=== PATIENT | male | born 1935 | race Caucasian/White ===

== ENCOUNTER 2018-12-30 10:10 | Emergency (ER) | payer OTHER ==
[~2018-12-30] VITALS: Ht 167.6 cm; Wt 95.3 kg
[~2018-12-30 10:10] MED LIST: ALDACTONE25 MG PO; AMARYL2 M1 PO; ASPIR 8181 MG PO; ATORVASTATIN CA40 MG PO; AUGMENTIN 875875 MG PO; CITRUCEL CAPLET1 TAB PO; COLACE100 MG PO; COREG25 MG PO; COREG3.125 MG PO; COZAAR 25 MG TA25 M1 PO; DEMADEX20 MG PO; ENOXAPARIN40 MG/0.1 SQ; IMDUR 30 MG TAB30 M1 PO; LASIX 20 MG TAB20 MG PO; LASIX 40 MG TAB40 M2 PO; LEVOTHYROXIN0.088 MG PO; NOVOLIN R100 UNIT/1; PLAVIX 75 MG TA75 M1 PO; PREDNISONE 20 M20 MG PO; TYLENOL325 MG PO; VOLTAREN GEL 1100 G2 TOP
[2018-12-30 10:11] VITALS: BP 123/65
[2018-12-30 10:33] LABS: ABSOLUTE NEUTROPHILS 15.1 thou/uL (1.4-8.2); BASOPHILS 0.3 % (0.0-2.0); HEMATOCRIT 43.5 % (42.0-52.0); HEMOGLOBIN 14.4 gm/dL (14.0-18.0); LYMPHOCYTES 4.4 % (24.0-44.0); MCH 30.3 pg (26.0-34.0); MCHC 33.2 g/dL (28.0-37.0); MCV 91.2 fL (80.0-100.0); MONOCYTES 6.3 % (1.0-8.0); PLATELET COUNT 254 thou/uL (150-400); RBC 4.77 mil/uL (4.50-6.00); RDW 13.9 % (10.5-14.5)
[2018-12-30 10:41] LABS: ANION GAP 18 mmol/L (7-16); BUN 40 mg/dL (7-18); CALCIUM 9.4 mg/dL (8.5-10.1); CHLORIDE 98 mmol/L (98-107); CO2 23 mmol/L (21-32); CREATININE 1.5 mg/dL (0.7-1.3); GLUCOSE 341 mg/dL (74-106); SODIUM 139 mmol/L (136-145)
[2018-12-30 10:42] LABS: POTASSIUM 4.2 mmol/L (3.5-5.1)
[2018-12-30 10:43] LABS: APTT 24.5 Seconds (24.5-32.8); PROTIME 10.8 Seconds (9.3-11.4)
[2018-12-30 10:49] LABS: TROPONIN-I <0.06 ng/mL (<0.06)
[2018-12-30 12:09] LABS: URINE BILIRUBIN NEGATIVE (Negative); URINE BLOOD NEGATIVE (Negative); URINE CLARITY CLEAR; URINE COLOR YELLOW; URINE GLUCOSE-RANDOM* 2+ (Negative); URINE KETONES 1+ (Negative); URINE LEUKOCYTES-REFLEX NEGATIVE (Negative); URINE NITRITE-REFLEX NEGATIVE (Negative); URINE PROTEIN (DIPSTICK) NEGATIVE (Negative); URINE UROBILINOGEN 0.2 E.U./dl (0.2-1.0)
[2018-12-30 12:24] VITALS: BP 108/63
[2018-12-30] MEDS ORDERED: LISINOPRIL5 MG PO (13:04)
[2018-12-30] MEDS ORDERED: ZAROXOLYN 5MG TA5 MG PO (13:05)
[2018-12-30] MEDS ORDERED: ELIQUIS5 MG PO (13:05)
[2018-12-30] MEDS ORDERED: POTASSIUM20 PO ×3 (13:07→13:14)
--- NOTE | 2018-12-30 13:23 | NUR ---
TECH TAKES PT TO THE FLOOR, ERP ALERTS THIS FRONT COUNTER ATTENDANT THAT PT WILL NEED TO COME BACK TO ER AND WILL LIKELY NEED TRANSFERED R/T CT RESULTS
[2018-12-30 13:54] LABS: FOLIC ACID 13.7 ng/mL (8.6-58.9)
[2018-12-30 15:30] VITALS: BP 120/60
--- NOTE | 2018-12-30 15:30 | NUR ---
KEL STARTED, EMS UPDATED ON MEDICATION. PT LEAVES ER AT THIS TIME
--- NOTE | 2018-12-30 15:53 | EKG ---
[place] [address] [facility] [place] [address] ELECTROCARDIOGRAM REPORT Name: VENU JAY Room #: 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
== END 2018-12-30 15:26 ==
LOC: ER 10:10 → EROBS 12:07 → 3W 13:14 → ER 15:26
PROVIDERS: Emergency Medicine; Internal Medicine
DX: R55 Syncope and collapse (principal); N17.9 Acute kidney failure, unspecified; K92.0 Hematemesis; I50.9 Heart failure, unspecified; R74.0 Nonspecific elevation of levels of transaminase and lactic acid dehydrogenase [LDH]; M25.552 Pain in left hip; M19.90 Unspecified osteoarthritis, unspecified site; Z96.643 Presence of artificial hip joint, bilateral; I25.2 Old myocardial infarction; Z95.5 Presence of coronary angioplasty implant and graft; Z90.49 Acquired absence of other specified parts of digestive tract

== ENCOUNTER 2021-04-21 10:22 | Inpatient (IN) | payer OTHER ==
[~2021-04-21] VITALS: Ht 167.6 cm; Wt 93.1 kg
[2021-04-21 10:22] VITALS: BP 144/72
[~2021-04-21 10:22] MED LIST changes: +ELIQUIS5 MG PO; +LISINOPRIL5 MG PO; +POTASSIUM20 PO; +ZAROXOLYN 5MG TA5 MG PO
[2021-04-21 12:09] LABS: ABSOLUTE NEUTROPHILS 4.9 thou/uL (1.4-8.2); BASOPHILS 1.3 % (0.0-2.0); EOSINOPHILS 3.4 % (0.0-3.0); HEMATOCRIT 42.6 % (42.0-52.0); HEMOGLOBIN 14.3 gm/dL (14.0-18.0); LYMPHOCYTES 17.7 % (24.0-44.0); MCHC 33.5 g/dL (28.0-37.0); MCV 92.4 fL (80.0-100.0); MONOCYTES 13.1 % (1.0-8.0); PLATELET COUNT 188 thou/uL (150-400); POLYS 64.5 % (36.0-66.0); RBC 4.61 mil/uL (4.50-6.00); RDW 13.9 % (10.5-14.5); WBC 7.6 thou/uL (4.0-11.0)
[2021-04-21 12:22] LABS: ANION GAP 11 mmol/L (7-16); BUN 12 mg/dL (7-18); CALCIUM 9.3 mg/dL (8.5-10.1); CHLORIDE 106 mmol/L (98-107); CO2 23 mmol/L (21-32); GLUCOSE 149 mg/dL (74-106); POTASSIUM 4.3 mmol/L (3.5-5.1); SODIUM 140 mmol/L (136-145)
[2021-04-21 12:31] LABS: ALBUMIN 3.2 g/dL (3.4-5.0); MAGNESIUM 1.9 mg/dL (1.8-2.4); SGOT 27 U/L (15-37); SGPT 39 U/L (16-63); TOTAL PROTEIN 6.8 g/dL (6.4-8.2); TROPONIN-I <0.06 ng/mL (<0.06)
--- NOTE | 2021-04-21 14:47 | NUR ---
UPDATE GIVEN TO MONSTER FROM [facility] AT THIS TIME. ENCOURAGED TO CALL WITH ANY QUESTIONS OR CONCERNS
--- NOTE | 2021-04-21 16:20 | NUR ---
PT AMBULATED ROUGHLY 50FT WITH ROTO MIXER OPERATOR. PT 02 STATED TO HAVE DROPPED TO 86% ON RA. ED PROVIDER NOTIFIED
[2021-04-21 17:26] VITALS: BP 144/68
[2021-04-21 17:48] VITALS: BP 122/69
[2021-04-21 18:20] VITALS: BP 130/63
[2021-04-21 23:52] VITALS: BP 123/61
[2021-04-22 04:10] VITALS: BP 119/61
[2021-04-22 05:21] LABS: ABSOLUTE NEUTROPHILS 4.2 thou/uL (1.4-8.2); EOSINOPHILS 4.2 % (0.0-3.0); HEMATOCRIT 44.6 % (42.0-52.0); HEMOGLOBIN 14.7 gm/dL (14.0-18.0); MCH 30.7 pg (26.0-34.0); MCV 92.9 fL (80.0-100.0); MONOCYTES 14.8 % (1.0-8.0); PLATELET COUNT 192 thou/uL (150-400); RDW 14.1 % (10.5-14.5); WBC 7.6 thou/uL (4.0-11.0)
--- NOTE | 2021-04-22 05:49 | NUR ---
PATIENTS CARES WERE ASSUMED AT SHIFT CHANGE. PATIENT WAS ASSESSED AND MEDS WERE PASSED. A RISER WAS PLACE OVER THE TOILET, IT WORKES HOWEVER THE TOILET LEEKS AT THE BASE. ROUNDS WERE DONE, THE BED IS IN A DREW AND
[2021-04-22 06:07] LABS: ANION GAP 16 mmol/L (7-16); BUN 14 mg/dL (7-18); CALCIUM 8.9 mg/dL (8.5-10.1); CHLORIDE 103 mmol/L (98-107); CO2 23 mmol/L (21-32); GLUCOSE 112 mg/dL (74-106); POTASSIUM 4.1 mmol/L (3.5-5.1); SODIUM 142 mmol/L (136-145); TROPONIN-I <0.06 ng/mL (<0.06)
[2021-04-22 06:14] LABS: CHOLESTEROL 130 mg/dL (<200); HDL CHOLESTEROL 44 mg/dL (>40); LDL CHOLESTEROL 58 mg/dL (<100); TRIGLYCERIDE 144 mg/dL (<150); VLDL 29 mg/dL (<40)
[2021-04-22 06:15] LABS: SERUM ASSESSMENT Clear
--- NOTE | 2021-04-22 06:59 | EKG ---
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 : 1935 Requested By: Bobbi Oliver Order Number: [id number] MD: Stu Mack Measurements Intervals [place] Rate: 63 P: 13 TN: 122 QRS: 259 QRSD: 143 T: 79 QT: 471 QTc: 483 Interpretive Statements A-V dual-paced complexes w/ some inhibition No further analysis attempted due to paced rhythm Compared to ECG 12/30/2018 11:15:13 Atrial fibrillation no longer present Electronically Signed On 04-22-2021 6:59:31 CDT by Stu Mack [email or web address] <ELECTRONICALLY SIGNED> By: Stu Mack MD, [facility] 04/22/21 0659 45 45 Stu Mack MD, [facility] /EPI
[2021-04-22 07:12] VITALS: BP 121/76
[2021-04-22 11:05] VITALS: BP 112/51
--- NOTE | 2021-04-22 14:24 | NUR ---
Pt is A&Ox4 Pt currently lives in [place] at [facility] [phone] Pt is independent w/ ADL's however, requires minimum assistance from facility staff. Pt states that there is an elevator that he can use PCP: Sumit Duff MD DPOA: Not completed. SW encouraged and pt declined at this time. DME: Cane, R/W, W/C HH/SNF/REHAB/DIALYSIS HX: SNF AT [facility] APPROXIAMTELY 3-4 TIMES IN THE LAST 5 YEARS PRIOR TO TRANSITIONING TO [place] COVID VACCINE RECEIVED NOVEMBER 2020 MODERNA 2/2 AT [place] FACILITY SW SPOKE W/ [facility] AT [facility] WHO STATED THAT PT CAN RETURN OVER WEEKEND, HOWEVER THEY DO HAVE LIMITED STAFFING OVER THE WEEKEND AND THE HOSPITAL MAY HAVE TO PROVIDE TRNASPORT. [facility] AT [facility] ENCOURAGES A CALL TO ADMISSIONS/NURSING PRIOR TO PT RETURNING AT SAID NUMBER ABOVE. D/C PLAN: RETURN TO [facility]
--- NOTE | 2021-04-22 15:04 | 2DMMODE ---
[address] [address] 2 D/M-MODE ECHOCARDIOGRAM Name: VENU JAY Room #: 219-P ADM IN M.R.#: [id number] Admission: 04/21/21 Attend Phys: Sumit Lewis MD Discharge: Date of : 35 Report #: [id number] THIS REPORT FOR: cc: Sumit Duff MD, Kirk D. MD Lundgren, Craig H. MD [facility] ~ APPROVED REPORT Study performed: 04/22/2021 13:21:41 EXAM: Comprehensive 2D, Doppler, and color-flow Echocardiogram Patient Location: Bedside Room #: 219 Status: routine BSA: 2.10 HR: 71 bpm BP: 121/76 mmHg Rhythm: Pacemaker Other Information Study Quality: Technically Difficult Technically limited study due to inability to position patient. Indications ICD: Diabetes Atrial Fibrillation Dyspnea CAD Cardiomyopathy Hypertension/HDD Medtronic ICD Aortic Valve AoV Peak Owen.: 1.38 m/s AO Peak Gr.: 7.57 mmHg LVOT Max P.62 mmHg LVOT Max V: 0.95 m/s Mitral Valve E/A Ratio: 0.6 MV Decel. Time: 249.47 ms MV E Max Owen.: 0.62 m/s MV A Owen.: 0.99 m/s [address] [address] 2 D/M-MODE ECHOCARDIOGRAM Name: VENU JAY Room #: 219-P ADM IN M.R.#: [id number] Admission: 04/21/21 Attend Phys: Sumit Lewis MD Discharge: Date of : 35 Report #: [id number] MV PHT: 72.35 ms IVRT: 124.57 ms Pulmonary Vein P Vein S: 0.40 m/s P Vein A: 0.29 m/s P Vein D: 0.26 m/s P Vein A Dur.: 143.0 msec P Vein S/D Ratio: 1.54 Left Ventricle The left ventricle is normal size. There is severe global hypokinesis of the left ventricle. There is normal left ventricular wall thickness. Left ventricular ejection fraction is severely decreased. LVEF is 20%. Mild diastolic dysfunction Right Ventricle The right ventricle is normal size. The right ventricular systolic function is normal. Device lead is present in the right ventricle. Atria Left atrium is at the upper limits of normal. Right atrium is at the upper limits of normal. Device lead is present in the right atrium. Aortic Valve The aortic valve is sclerotic. No aortic regurgitation is present. There is no aortic valvular stenosis. Mitral Valve Mild mitral leaflet sclerosis. Mild mitral regurgitation. No evidence of mitral valve stenosis. Tricuspid Valve The tricuspid valve is normal in structure. There is no tricuspid valve regurgitation noted. Pulmonic Valve The pulmonary valve is normal in structure. There is no pulmonic valvular regurgitation. Great Vessels The aortic root is normal in size. The inferior vena cava is not well visualized. Pericardium There is no pericardial effusion. [facility] [address] [place] [address] 2 D/M-MODE ECHOCARDIOGRAM Name: VENU JAY Room #: 219-P ADM IN ..#: [id number] Admission: 04/21/21 Attend Phys: Sumit Lewis MD Discharge: Date of : 35 Report #: [id number] <Conclusion> Left ventricular ejection fraction is severely decreased. There is severe global hypokinesis of the left ventricle. LVEF is 20%. Mild diastolic dysfunction The aortic valve is sclerotic. No aortic regurgitation is present. Mild mitral leaflet sclerosis. Mild mitral regurgitation. Pulmonary artery pressure could not be reliably ascertained There is no pericardial effusion. <ELECTRONICALLY SIGNED> By: Darian Alvarez MD, FACC 04/22/21 1504 1504 1504 Darian Alvarez MD, FACC /INF
[2021-04-22 15:39] VITALS: BP 109/58
--- NOTE | 2021-04-22 18:49 | NUR ---
PATIENT CONTINUES TO HAVE DYSPNEA WITH MOVING IN BED, WALKING OR REPOSITIONING SELF. PATIENT'S VSS DURING AMBULATION AND TRANSFERRING. PT WALKED WITH PATIENT IN HALLWAY WITH C/O DYSPNEA BUT NO VS CHANGES. PATIENT SON, CRISTOBAL, UPDATED AT BEDSIDE. PATIENT CAN BE IMPULSIVE AND NOT USE THE CALL LIGHT. PATIENT STATES THIS IS BECAUSE "AT THE FACILITY, I'M NOT USED TO USING A CALL LIGHT. I DO A LOT OF THIS MYSELF." ENCOURAGED TO USE CALL LIGHT DUE TO BEING A FALL RISK AND DYSPNEA.
[2021-04-22 19:39] VITALS: BP 128/60
[2021-04-23 00:06] LABS: GLYCOHEMOGLOBIN (HGB A1C) 7.6 % (4.8-5.6)
[2021-04-23 04:40] VITALS: BP 127/71
[2021-04-23 05:22] LABS: HEMATOCRIT 42.8 % (42.0-52.0); HEMOGLOBIN 14.6 gm/dL (14.0-18.0); MCH 31.2 pg (26.0-34.0); MCHC 34.2 g/dL (28.0-37.0); MCV 91.4 fL (80.0-100.0); RBC 4.68 mil/uL (4.50-6.00); RDW 14.2 % (10.5-14.5); WBC 6.9 thou/uL (4.0-11.0)
[2021-04-23 05:32] LABS: CALCIUM 8.9 mg/dL (8.5-10.1); CREATININE 1.2 mg/dL (0.7-1.3); POTASSIUM 3.7 mmol/L (3.5-5.1)
[2021-04-23 08:33] LABS: ALBUMIN 3.3 g/dL (3.4-5.0); DIRECT BILIRUBIN 0.2 mg/dL (<0.1-0.2); TOTAL BILIRUBIN 2.1 mg/dL (0.2-1.0); TOTAL PROTEIN 7.1 g/dL (6.4-8.2)
[2021-04-23 08:40] VITALS: BP 109/57
[2021-04-23 11:19] VITALS: BP 140/69
[2021-04-23 16:00] VITALS: BP 100/38
[2021-04-23 18:41] VITALS: BP 90/58
[2021-04-23 19:21] VITALS: BP 96/46
--- NOTE | 2021-04-23 19:53 | NUR ---
RN ASSUMED PT'S CARE AT 0700-19OOPM, PT IS A&OX4, PT IS OFF O2 AT MOST OF TIME AT DAY SHIFT, PT STARTS O2 2L/MIN/NC AT 1800PM DUE TO sob with activities, PT'S VS ARE STABLE, PT DENIES PAIN AT DAY SHIFT.
[2021-04-24 04:40] VITALS: BP 96/76
[2021-04-24 08:00] VITALS: BP 118/48
[2021-04-24 10:32] LABS: ABSOLUTE NEUTROPHILS 4.9 thou/uL (1.4-8.2); BASOPHILS 0.8 % (0.0-2.0); EOSINOPHILS 2.7 % (0.0-3.0); HEMATOCRIT 43.8 % (42.0-52.0); HEMOGLOBIN 14.5 gm/dL (14.0-18.0); MCH 30.9 pg (26.0-34.0); MCHC 33.1 g/dL (28.0-37.0); MCV 93.3 fL (80.0-100.0); MONOCYTES 13.7 % (1.0-8.0); PLATELET COUNT 198 thou/uL (150-400); POLYS 64.8 % (36.0-66.0); RBC 4.69 mil/uL (4.50-6.00); RDW 14.5 % (10.5-14.5); WBC 7.6 thou/uL (4.0-11.0)
[2021-04-24 10:35] LABS: CALCIUM 8.6 mg/dL (8.5-10.1); POTASSIUM 4.4 mmol/L (3.5-5.1)
[2021-04-24 10:37] LABS: CREATININE 2.3 mg/dL (0.7-1.3)
[2021-04-24 12:29] VITALS: BP 92/55
[2021-04-24 16:00] VITALS: BP 91/47
[2021-04-24 20:30] VITALS: BP 95/50
[2021-04-25 04:45] VITALS: BP 128/67
[2021-04-25 04:54] LABS: HEMATOCRIT 42.7 % (42.0-52.0); HEMOGLOBIN 14.5 gm/dL (14.0-18.0); MCH 31.5 pg (26.0-34.0); MCHC 33.9 g/dL (28.0-37.0); MCV 92.9 fL (80.0-100.0); RBC 4.6 mil/uL (4.50-6.00); RDW 14.6 % (10.5-14.5); WBC 8.4 thou/uL (4.0-11.0)
[2021-04-25 05:05] LABS: CALCIUM 8.5 mg/dL (8.5-10.1); POTASSIUM 3.9 mmol/L (3.5-5.1)
[2021-04-25 07:56] VITALS: BP 117/47
[2021-04-25 11:48] VITALS: BP 94/52
[2021-04-25 15:47] VITALS: BP 78/32
[2021-04-25 20:15] VITALS: BP 106/41
[2021-04-26 04:45] VITALS: BP 104/53
[2021-04-26 05:00] LABS: HEMATOCRIT 42.9 % (42.0-52.0); HEMOGLOBIN 14.3 gm/dL (14.0-18.0); MCHC 33.3 g/dL (28.0-37.0); MCV 93.2 fL (80.0-100.0); RBC 4.6 mil/uL (4.50-6.00); RDW 14.2 % (10.5-14.5); WBC 7.6 thou/uL (4.0-11.0)
[2021-04-26 05:20] LABS: CALCIUM 8.1 mg/dL (8.5-10.1); CREATININE 2.3 mg/dL (0.7-1.3); POTASSIUM 4.5 mmol/L (3.5-5.1)
[2021-04-26 08:15] VITALS: BP 106/52
[2021-04-26 12:00] VITALS: BP 103/50
[2021-04-26 16:15] VITALS: BP 109/62
[2021-04-26 20:26] VITALS: BP 111/53
[2021-04-27 04:56] VITALS: BP 127/73
[2021-04-27 06:02] LABS: CALCIUM 8.5 mg/dL (8.5-10.1); CREATININE 1.6 mg/dL (0.7-1.3); POTASSIUM 4.3 mmol/L (3.5-5.1)
[2021-04-27 07:10] VITALS: BP 122/63
--- NOTE | 2021-04-27 09:14 | NUR ---
CARE TEAM HAD INDICATED THAT PT WASN'T MEDICALLY STABLE FOR DC HOME YESTERDAY HIS CREATININE BUMPED UP. CM MET WITH PT AT BEDSIDE. PT NEEDS O2 FOR HOME USE 2L WITH ACTIVITY PT INDICATED NO PREFERENCE FOR PROVIDER. CM SENT REFERRAL AND ORDER TO [facility] FOR HOME 02 UPON DC. PORTABLE TANK DELIVERED TO PT'S ROOM THIS DAY. CM FAXED CLINICAL UPDATE TO [facility] YESTERDAY. PT HAD BEEN ACCEPTED FOR PT, OT, AND NURSING THROUGH [facility]. LIAISON MET WITH PT YESTERDAY. PT IS AWARE AND AGREEABLE WITH ANTICPATED DC BACK TO [facility] WITH [facility] O2 AND [facility] TODAY.
[2021-04-27 11:05] VITALS: BP 119/61
[2021-04-27 16:15] VITALS: BP 123/56
--- NOTE | 2021-04-27 16:40 | NUR ---
NO ACUTE CHANGES THIS SHIFT. PATIENT HAD TWO MEDIUM-LARGE SOFT BM THIS SHIFT. REPORTED THIS TO GI ROTARY SOIL STABILIZER OPERATOR. PATIENT AMBULATED WITH WALKER AND CONTINUES TO HAS SHORTNESS OF BREATH WITH ACTIVITY.
[2021-04-27 20:12] VITALS: BP 135/62
[2021-04-28 04:35] VITALS: BP 145/63
[2021-04-28 04:39] LABS: HEMATOCRIT 42.9 % (42.0-52.0); HEMOGLOBIN 14.4 gm/dL (14.0-18.0); MCH 31.1 pg (26.0-34.0); MCHC 33.6 g/dL (28.0-37.0); MCV 92.5 fL (80.0-100.0); RBC 4.64 mil/uL (4.50-6.00); WBC 6.6 thou/uL (4.0-11.0)
[2021-04-28 08:29] VITALS: BP 98/65
--- NOTE | 2021-04-28 09:53 | NUR ---
Nutrition: pt admitted with dyspnea and seen for LOS. PMH: CAD, CHF, HTN, DM, ICM. PO intake is good, observed 100% breakfast. Stable weights reported. BM 04/26, constipation per CT, on miralax. BG 133-272, will add carb controlled to diet order. RD addressed education needs with pt and importance of Na+ restriction/DM diet. Pt was not interested in discussing diet/suspected noncompliance. Low nutrition risk at this time.
[2021-04-28 11:36] VITALS: BP 99/62
[2021-04-28 15:07] VITALS: BP 99/62
--- NOTE | 2021-04-28 15:31 | NUR ---
Possible dc back to [facility] tomorrow after his colonoscopy. BS updated. Pt wants to go back to his apt vs snf but they can flip him to a snf bed if he does not do well. [facility] can accept and is following for final orders. [facility] has provided his portable o2 tank (in his room) and will deliever the concentrator to his facility. clinical updated faxed to admissions at the facility. They are requesting dc summary and instructions be faxed to both admissions and the CONSTANCE [phone] and [phone]. Linda Clement coordinates their transport and she can be reached at [phone] cell# to arrange for a w/c van ride home tomorrow afternoon. Cm to confirm dc with [facility] and they can send their coach driver to the facility with the concentrator. Report can be called to [phone] and ask for the [facility].
[2021-04-28 15:46] VITALS: BP 116/64
--- NOTE | 2021-04-28 18:27 | NUR ---
PT RESTING COMFORTABLY ON 2L NC. UP TO CHAIR. GI NOT GOING TO DO EGD TOMORROW. PLAN IS TO DC TOMORROW WITH HOME HEALTH AND OXYGEN. PT AFEBRILE, ADEQUATE UOP, NO BM, APPROPRIATE APPETITE. PT AND SISTER HAVE BEEN THOUROUGHLY UPDATED AND EDUCATED ON PT CONDITION AND POC. PT PROGRESSING TOWARDS POC.
[2021-04-28 19:36] VITALS: BP 93/51
[2021-04-29 04:24] VITALS: BP 119/67
[2021-04-29 04:41] LABS: HEMATOCRIT 41.6 % (42.0-52.0); HEMOGLOBIN 14.3 gm/dL (14.0-18.0); MCH 31.4 pg (26.0-34.0); MCHC 34.3 g/dL (28.0-37.0); MCV 91.5 fL (80.0-100.0); RBC 4.55 mil/uL (4.50-6.00); RDW 13.9 % (10.5-14.5); WBC 6.5 thou/uL (4.0-11.0)
[2021-04-29 05:10] LABS: CALCIUM 9.1 mg/dL (8.5-10.1); CREATININE 1.2 mg/dL (0.7-1.3); MAGNESIUM 1.7 mg/dL (1.8-2.4); POTASSIUM 3.8 mmol/L (3.5-5.1)
[2021-04-29 08:56] VITALS: BP 117/58
[2021-04-29] MEDS ORDERED: TORSEMIDE10 MG PO (11:22)
[2021-04-29] MEDS ORDERED: LEVOFLOXACIN750 MG PO (11:23)
[2021-04-29 12:06] VITALS: BP 99/62
[2021-04-29 12:10] VITALS: BP 99/62
[2021-04-29 12:37] VITALS: BP 118/74
--- NOTE | 2021-04-29 13:22 | NUR ---
FAXED DISCHARGE ORDERS AND SUMMARY TO [facility]. CONFIRMED WITH [place]/LIAISON THAT PATIENT WILL BE DISCHARGED TODAY, 04/29/21 AND D/C ORDERS AND SUMMARY WERE FAXED. FAXED DISCHARGE ORDERS AND SUMMARY TO [facility]. SPOKE TO MILO/ADMISSIONS THAT PATIENT WILL DISCHARGE AND D/C ORDERS AND SUMMARY WERE SENT TO THE ADMISSION OFFICE AT BOTH FACILITIES. [facility] P [phone]; FAX [phone]; L[place]ON Chaudhary [phone] [facility] P [phone]; FAX [phone] AND FAX [phone]
--- NOTE | 2021-04-29 16:16 | NUR ---
RECEIVED THE PATIENT CONSCIOUS AND ORIENTED.ON NASAL CANNULA AT 2LPM,SATURATING WELL.NOT IN PAIN OR DISTRESS.FACILIATED DISCHARGE.DISCHARGE PACKET GIVEN AND EXPLAINED TO THE PATIENT.REPORT GIEV TO HOME CARE FACILITY.DISCHARGED PATIENT ON STABLE CONDITION.
== END 2021-04-29 15:50 | disposition home health service (06) | DRG 291 ==
LOC: ER 10:22 → 2N 17:07 → EROBS 17:07 → 2N 18:34
PROVIDERS: Emergency Medicine; Internal Medicine; Internal Medicine Gastroenterology; Nurse Practitioner; Nurse Practitioner Adult Health; ADMIT Hospitalist; ATTEND Hospitalist
PROC: 4B02XSZ Measurement of Cardiac Pacemaker, External Approach (ICD-10-PCS; principal; 2021-04-22)
DX: I13.0 Hypertensive heart and chronic kidney disease with heart failure and stage 1 through stage 4 chronic kidney disease, or unspecified chronic kidney disease (principal); J18.9 Pneumonia, unspecified organism; J96.01 Acute respiratory failure with hypoxia; I50.21 Acute systolic (congestive) heart failure; N17.9 Acute kidney failure, unspecified; I48.21 Permanent atrial fibrillation; I25.10 Atherosclerotic heart disease of native coronary artery without angina pectoris; Z20.822 Contact with and (suspected) exposure to COVID-19; G89.29 Other chronic pain; M25.552 Pain in left hip; Z96.649 Presence of unspecified artificial hip joint; I25.5 Ischemic cardiomyopathy; E03.9 Hypothyroidism, unspecified; R53.81 Other malaise; E53.8 Deficiency of other specified B group vitamins; T50.2X5A Adverse effect of carbonic-anhydrase inhibitors, benzothiadiazides and other diuretics, initial encounter; K59.00 Constipation, unspecified; N18.9 Chronic kidney disease, unspecified; E11.22 Type 2 diabetes mellitus with diabetic chronic kidney disease; K52.9 Noninfective gastroenteritis and colitis, unspecified; N40.0 Benign prostatic hyperplasia without lower urinary tract symptoms; T17.990A Other foreign object in respiratory tract, part unspecified in causing asphyxiation, initial encounter; X58.XXXA Exposure to other specified factors, initial encounter; Y93.89 Activity, other specified; Y92.89 Other specified places as the place of occurrence of the external cause; Y99.8 Other external cause status; I25.2 Old myocardial infarction; Z95.5 Presence of coronary angioplasty implant and graft; Z90.49 Acquired absence of other specified parts of digestive tract; Z95.810 Presence of automatic (implantable) cardiac defibrillator; Z79.899 Other long term (current) drug therapy
CPT/HCPCS: 10081; 10194